=== PATIENT | male | born 1945 | race Caucasian/White ===

== ENCOUNTER → 2016-06-20 | Outpatient (CLI) | payer OTHER | LOC: FIMAGING 10:54 | PROVIDERS: ATTEND Internal Medicine | DX: R91.1 Solitary pulmonary nodule (principal); N20.0 Calculus of kidney; I25.10 Atherosclerotic heart disease of native coronary artery without angina pectoris ==

== ENCOUNTER 2016-07-12 13:59 | Emergency (ER) | payer OTHER ==
[~2016-07-12 13:59] MED LIST: HYDROmorphONE/DILAUDID 1 MG/ML SYR IVP ONE
[2016-07-12] MEDS ORDERED: HYDROmorphONE/DILAUDID 1 MG/ML SYR IVP ONE (14:28)
[2016-07-12] MEDS ORDERED: ONDANSETRON 4 MG/2 ML VIAL IVP ONE (14:30)
[2016-07-12] MEDS ORDERED: NS 1,000 ML IV ONE (14:30)
--- NOTE | 2016-07-12 14:51 | EDPHY ---
H & P Stated Complaint: probable kidney stone rlq/r flank HPI/ROS: CHIEF COMPLAINT: Right flank and abdominal pain HISTORY OF PRESENT ILLNESS: This is a 70-year-old male with a history of ureterolithiasis who presents with 1.5 hours of severe right flank pain that radiates into his right lower abdomen and groin, almost to the testicle. The pain is constant with waxing and waning. He cannot find a comfortable position. He had associated nausea but no vomiting. There was some diaphoresis when the pain began but this has resolved. This pain is similar to his previous kidney stone pain. He has had at least 5 episodes of kidney stone pain and 1 ureteroscopy over a decade ago. He has not recently been ill. He denies fever today. He has not had recent constipation or diarrhea. He is concerned because he has iliac artery aneurysms and is worried about aneurysmal rupture today. REVIEW OF SYSTEMS: A ten point review of systems was performed and is negative with the exception of the items mentioned in the HPI. 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 Lives with a roommate. - Physical Exam Exam: General Appearance: Alert. Vital signs reviewed. Blood pressure 162/100 at triage, 149/86 at the time of my evaluation. Eyes: Pupils equal and round, no conjunctival injection, no discharge. Anicteric. ENT, Mouth: Mucous membranes are moist, no oropharyngeal erythema or edema. Neck: No lymphadenopathy, supple. Respiratory: Lungs are clear to auscultation; no wheezes, rales, or rhonchi. Cardiovascular: Regular rate and rhythm; no murmur, rub, or gallop. Gastrointestinal: Abdomen is soft and nontender, no masses or organomegaly, bowel sounds normal. Genitalia: Normal circumcised male. No testicular swelling or tenderness. Skin: Warm and dry, no rashes on exposed skin, normal color. Back: Nontender to palpation over the thoracolumbar spine. Mild right CVAT. Extremities: No lower extremity edema, no calf tenderness or swelling. Neurological: Alert and oriented. Moving all four extremities easily and equally. Psychiatric: Normal affect. Constitutional: Initial Vital Signs Temperature (C) 36.5 C 07/12/16 14:13 Heart Rate 75 07/12/16 14:13 Respiratory Rate 18 07/12/16 14:13 Blood Pressure 162/100 H 07/12/16 14:13 O2 Sat (%) 95 07/12/16 14:13 O2 Delivery Mode Room Air Allergies/Adverse Reactions: No Known Allergies Allergy (Verified 07/12/16 14:12) Home Medications: Medication Instructions Recorded Levothyroxine 12/19/09 Pulmicort 12/19/09 Vits,Supplements,Fish Oil 12/19/09 Hydrocodone/APAP 5/325 [Oneco 1 - 2 tab PO Q4 PRN #14 tab 07/12/16 5/325 (RX)] Tamsulosin HCl [Flomax] 0.4 mg PO DAILY #6 cap 07/12/16 Medical Decision Making ED Course/Re-evaluation: 4:20 p.m.: I reevaluated the patient for the second time. He is without pain. Urinalysis is positive for RBCs, no signs of infection. His current blood pressure is 171/125. He took his regular dose of antihypertensive medication at 9am this morning. He states his BP is usually well controlled. Patient's symptoms are similar to previous kidney stone. Due to recent CT scans, I do not suggest more radiation as he is now pain free. Patient agrees with this plan. Plan to treat for ureterolithiasis with narcotic pain medication and Flomax. I have instructed him to take Motrin or Advil for antiinflammation. The patient has an appointment with cardiology tomorrow for a stress test. Plan to give patient Flomax in the ED. Danger signs reviewed. BP at DC 136/85. Differential Diagnosis: Flank pain including but not limited to musculoskeletal causes, kidney stone, pyelonephritis, shingles, and intra-abdominal causes such as diverticulitis and appendicitis. - Data Points Laboratory Results: Laboratory Results 07/12/16 14:30 07/12/16 14:30 Medications Given: Discontinued Medications Hydromorphone HCl (Dilaudid) 0 mg IVP EDNOW ONE Stop: 07/12/16 14:29 Last Admin: 07/12/16 14:40 Dose: 1 mg Hydromorphone HCl (Dilaudid) 1 mg IVP EDNOW ONE Stop: 07/12/16 08:01 Last Admin: 07/12/16 14:55 Dose: 1 mg Sodium Chloride (Ns) 1,000 mls @ 0 mls/hr IV ONCE ONE PRN Reason: Wide Open Stop: 07/12/16 14:31 Last Admin: 07/12/16 14:40 Dose: 1,000 mls Ketorolac Tromethamine (Toradol) 15 mg IVP EDNOW ONE Stop: 07/12/16 15:07 Last Admin: 07/12/16 15:15 Dose: 15 mg Ondansetron HCl (Zofran) 4 mg IVP EDNOW ONE Stop: 07/12/16 14:31 Last Admin: 07/12/16 14:40 Dose: 4 mg Tamsulosin HCl (Flomax) 0.4 mg PO EDNOW ONE Stop: 07/12/16 16:31 Last Admin: 07/12/16 16:50 Dose: 0.4 mg Departure - Departure Disposition: Home, Routine, Self-Care Clinical Impression: Kidney stone Condition: Good Instructions: Kidney Stones (ED) Additional Instructions: 1. Take Aleve twice daily, once in the morning and once at night. 2. Do not take a Flomax tomorrow until you have had your stress test. 3. Take the narcotic pain medication if you develop severe pain. 4. Return to the Emergency Department with new or worsening pain. 5. Strain all urine. 6. Follow up with your PCP (let him know that you had high blood pressure in the ED) and with a urologist. Referrals: Vicente Rivera MD [Primary Care Provider] - As per Instructions Mando Lora MD [Medical Doctor] - As per Instructions Prescriptions: Hydrocodone/APAP 5/325 [Oneco 5/325 (RX)] 1 - 2 tab PO Q4 PRN #14 tab PRN Reason: pain Tamsulosin HCl [Flomax] 0.4 mg PO DAILY #6 cap Report Scribed for: Kimber Viveros Report Scribed by: Aaliyah Fontanez Date of Report: 07/12/16 Time of Report: 16:34 Physician Review and Approval Statement: 07/12/16 16:47 Portions of this note were transcribed by the biomedical engineering technician. I, Dr. Kimber Viveros, personally performed the history, physical exam, and medical decision- making; and confirmed the accuracy of the information in the transcribed note.
[2016-07-12] MEDS ORDERED: HYDROmorphONE/DILAUDID 1 MG/ML SYR ONE (14:53)
[2016-07-12 15:00] LABS: % IMMATURE GRANULYOCYTES 0.2 % (0.0-1.1); ABSOLUTE IMMATURE GRANULOCYTES 0.02 10^3/uL (0.00-0.10); ADD DIFF? NO; ADD MORPH? NO; ADD SCAN? NO; ATYPICAL LYMPHOCYTE FLAG 0 (0-99); FRAGMENT RBC FLAG 0 (0-99); HEMATOCRIT 45.8 % (40.0-51.0); HEMOGLOBIN 15.6 g/dL (13.7-17.5); LEFT SHIFT FLG 0 (0-99); LIPEMIA HEMOLYSIS FLAG 90 (0-99); MEAN CELL HEMOGLOBIN 29.7 pg (27.9-34.1); MEAN CELL HEMOGLOBIN CONCENTR. 34.1 g/dL (32.4-36.7); MEAN CELL VOLUME 87.2 fL (81.5-99.8); MEAN PLATELET VOLUME 10.2 fL (8.7-11.7); PLATELET CLUMPS FLAG 0 (0-99); PLATELET COUNT 228 10^3/uL (150-400); RED BLOOD CELL COUNT 5.25 10^6/uL (4.40-6.38); RED CELL DISTRIBUTION WIDTH 13.8 % (11.5-15.2)
[2016-07-12 15:05] LABS: ANION GAP 10 mEq/L (8-16); CALCIUM 9.5 mg/dL (8.5-10.4); CARBON DIOXIDE 25 mEq/l (22-31); CHLORIDE 108 mEq/L (97-110); CREATININE 0.9 mg/dL (0.7-1.3); GLOMERULAR FILTRATION RATE > 60; GLUCOSE 139 mg/dL (70-100); POTASSIUM 4.4 mEq/L (3.5-5.2); SODIUM 143 mEq/L (134-144)
[2016-07-12] MEDS ORDERED: KETOROLAC 15 MG/1 ML SDV IVP ONE (15:06)
[2016-07-12 16:06] LABS: COLOR AMBER; LEUKOCYTE ESTERASE,URINE NEGATIVE (NEGATIVE); NITRITE,URINE NEGATIVE (NEGATIVE)
[2016-07-12 16:18] LABS: MUCUS TRACE /lpf (NONE-1+); RBC,URINE 25-50 /hpf (0-3)
[2016-07-12 16:19] LABS: BACTERIA NONE SEEN /hpf (NONE SEEN)
[2016-07-12] MEDS ORDERED: TAMSULOSIN HCL 0.4 MG CAP PO ONE (16:30)
[2016-07-12 16:55] VITALS: BP 136/85; PULSE 88; RESP 18; TEMP 98.6; O2SAT 91
== END 2016-07-12 17:08 | disposition home or self-care (01) ==
DX: N20.0 Calculus of kidney (principal); J45.909 Unspecified asthma, uncomplicated
CPT/HCPCS: 96374; 96375; 99284; J1170; J1885; J2405

== ENCOUNTER → 2017-08-11 | Outpatient (CLI) | payer OTHER | LOC: BMCIMAGING 12:59 | PROVIDERS: ATTEND Internal Medicine | DX: I65.23 Occlusion and stenosis of bilateral carotid arteries (principal); I72.3 Aneurysm of iliac artery ==

== ENCOUNTER → 2017-09-21 | Outpatient (CLI) | payer OTHER ==
[~2017-09-21] MED LIST changes: -HYDROmorphONE/DILAUDID 1 MG/ML SYR IVP ONE; +IOPAMIDOL (ISOVUE 370) 100 ML BTL IV ONE
== END ==
LOC: FIMAGING 11:36
PROVIDERS: ATTEND Internal Medicine
DX: I72.3 Aneurysm of iliac artery (principal); R91.1 Solitary pulmonary nodule; N20.0 Calculus of kidney
CPT/HCPCS: 75635; Q9967

== ENCOUNTER → 2018-02-07 | Outpatient (CLI) | payer OTHER | LOC: FIMAGING 11:44 | PROVIDERS: ATTEND Internal Medicine | DX: R91.1 Solitary pulmonary nodule (principal) ==